=== PATIENT | female | born 1990 | race Caucasian/White ===

== ENCOUNTER 2021-11-11 12:53 | Outpatient (CLI) | payer OTHER | END 2021-11-11 13:35 | disposition home or self-care (01) | LOC: NST 12:53 | PROVIDERS: ATTEND Obstetrics & Gynecology Maternal & Fetal Medicine | DX: Z34.83 Encounter for supervision of other normal pregnancy, third trimester (principal) ==

== ENCOUNTER 2021-12-24 10:00 | Inpatient (IN) | payer OTHER ==
[~2021-12-24] VITALS: Ht 170.2 cm; Wt 93.0 kg
[2022-01-01] MEDS ORDERED: PRENATAL CAPLE1 EAC1 (08:26)
== END 2022-01-03 12:44 | disposition home or self-care (01) | DRG 807 ==
LOC: OB/GYN 12-26 10:00 → SURG-SUITE 01-01 07:39 → LDR 01-01 07:39 → SURG-SUITE 01-01 13:29
PROVIDERS: ADMIT Obstetrics & Gynecology Maternal & Fetal Medicine; ATTEND Obstetrics & Gynecology Maternal & Fetal Medicine
PROC: 10E0XZZ Delivery of Products of Conception, External Approach (ICD-10-PCS; principal; 2022-01-01)
PROC: 4A1HXCZ Monitoring of Products of Conception, Cardiac Rate, External Approach (ICD-10-PCS; 2022-01-01)
PROC: 0HQ9XZZ Repair Perineum Skin, External Approach (ICD-10-PCS; 2022-01-01)
DX: O70.1 Second degree perineal laceration during delivery (principal); Z37.0 Single live birth; Z3A.39 39 weeks gestation of pregnancy; Z20.822 Contact with and (suspected) exposure to COVID-19

== ENCOUNTER 2023-03-12 18:34 | Emergency (ER) | payer OTHER ==
[~2023-03-12] VITALS: Ht 170.2 cm; Wt 83.5 kg
[~2023-03-12 18:34] MED LIST: PRENATAL CAPLE1 EAC1
== END 2023-03-12 22:30 | disposition home or self-care (01) ==
LOC: ER 18:34
DX: R42 Dizziness and giddiness (principal); Z91.013 Allergy to seafood

== ENCOUNTER 2023-04-14 12:27 | Emergency (ER) | payer OTHER ==
[~2023-04-14] VITALS: Ht 170.2 cm; Wt 83.9 kg
[2023-04-14] MEDS ORDERED: FLONASE ALLERG9.9 ML NASAL (15:51)
[2023-04-14] MEDS ORDERED: CLARITIN-D 241 EACH PO (15:51)
== END 2023-04-14 16:06 | disposition home or self-care (01) ==
LOC: EMR PED 12:27 → ER 12:30
DX: J02.9 Acute pharyngitis, unspecified (principal); R53.81 Other malaise; R51.9 Headache, unspecified; Z91.013 Allergy to seafood

== ENCOUNTER 2025-06-18 16:43 | Emergency (ER) | payer OTHER ==
[~2025-06-18] VITALS: Ht 170.2 cm; Wt 90.7 kg
[~2025-06-18 16:43] MED LIST changes: +CLARITIN-D 241 EACH PO; +FLONASE ALLERG9.9 ML NASAL
[2025-06-18] MEDS ORDERED: ACETAMINOPHEN 325 MG TABLET PO STA (17:08)
[2025-06-18 17:58] LABS: BASO % 0.7 % (0.1-1.2); EOS # 0.14 (0.04-0.54); EOS % 2.3 % (0.7-7.0); LYMPH # 1.54 (1.18-3.74); LYMPH % 25.1 % (19.3-53.1); MEAN PLATELET VOLUME 9.10 fl (9.4-12.4); MONO # 0.52 (0.24-0.82); MONO % 8.5 % (4.7-12.5); NEUT # 3.88 (1.56-6.13); NEUT % 63.2 % (34.0-71.1); RED CELL DISTRIBUTION WIDTH 14.2 % (11.6-14.4)
[2025-06-18 18:09] LABS: COVID-19 AG POSITIVE (NEGATIVE)
== END 2025-06-18 18:47 | disposition home or self-care (01) ==
LOC: ER 16:43
PROVIDERS: General Practice
DX: U07.1 COVID-19 (principal); Z91.013 Allergy to seafood